=== PATIENT | male | born 1955 | race Caucasian/White ===

== ENCOUNTER 2022-04-25 00:54 | Day surgery (SDC) | payer BC, SELFPAY ==
[2022-04-18 15:44] VITALS: BMI 28.6
--- NOTE | 2022-04-24 12:34 | PM.HPGS ---
History of Present Illness History of Present Illness Consent: Risks, benefits, and alternatives have been discussed and questions answered. Patient agrees to proceed with procedure. Chief complaint: hx colon polyps, neoplasm screening Narrative: Francisco Javier Bunch is a 66 year old male here for colon cancer screening. Five years ago he had a large cecal polyp that required piecemeal removal. Six months later he had removal of residual polyp and several months after that he was examined there was no residual polyp tissue at that time. Review of Systems Review of Systems: All systems reviewed & are unremarkable except as noted in HPI and below PMFSH Past Medical History Medical History Asthma Atrial fibrillation history of; now in NSR Diverticular disease [place] syndrome Hypertension Surgical History Surgical History H/O hand surgery History of colon resection History of left knee replacement Family History Family History Mother Patient's mother is in good health Father Emphysema lung Sibling Heart disease Other Family history of emphysema Social History Social History Smoking status: Never smoker Alcohol intake: current Drinks per week: 2 Alcohol use details: occasionally Substance use: never Substance use type: does not use Living arrangements: with family Spiritual care concerns: No Meds Home Medications and Allergies Home Medications Medication Instructions Recorded Confirmed Type albuterol sulfate 90 mcg/actuation 2 puff inhalation Q6H PRN Dyspnea 04/18/22 04/18/22 History aerosol inhaler Aspirin Child 81 mg PO DAILY 04/25/22 04/25/22 History Allergies Allergy/AdvReac Type Severity Reaction Status Date / Time No Known Allergies Allergy Verified 04/25/22 06:49 Exam Const: General: alert Orientation/consciousness: patient oriented x3 Resp: Auscultation: clear to auscultation bilaterally Cardio: Rhythm: regular rhythm GI: GI Palp: Yes Soft to palpation and No Tenderness to palpation present (GI) Neuro: General: patient oriented x3 Assessment and Plan Assessment and plan (1) Colon cancer screening: Code(s): Z12.11 - Encounter for screening for malignant neoplasm of colon Status: Acute Assessment and Plan: Colonoscopy with possible biopsy or polypectomy or cautery or injection of substances.
[2022-04-25 06:52] VITALS: BP 161/90; PULSE 75; RESP 20; TEMP 36.6; O2SAT 97
[2022-04-25] MEDS: LACTATED RINGERS 1,000 ML 150 ML IV CONT (07:01)
--- NOTE | 2022-04-25 07:44 | WPDANESEPPF ---
Anes - Initial Pre Proc Eval Procedure: Operation Date: 04/25/22 08:00 Proposed Procedures p Screening Colonoscopy - Reginaldo Nugent MD Date/Time: 04/25/22 07:44 Surgeon: Reginaldo Nugent MD Pre Op Diagnosis: hx colon polyps, neoplasm screening Patient Data Age: 66 Gender: M Height: 1.8 m Weight: 92.8 kg Last Vital Signs Temp 97.8 F 04/25/22 06:52 Pulse 75 04/25/22 06:52 Resp 20 04/25/22 06:52 BP 161/90 H 04/25/22 06:52 Pulse Ox 97 04/25/22 06:52 O2 Del Method Room Air 04/25/22 06:52 Allergies Allergy/AdvReac Type Severity Reaction Status Date / Time No Known Allergies Allergy Verified 04/25/22 06:49 Home Medications Medication Instructions Recorded Confirmed Type albuterol sulfate 90 mcg/actuation 2 puff inhalation Q6H PRN Dyspnea 04/18/22 04/18/22 History aerosol inhaler Aspirin Child 81 mg PO DAILY 04/25/22 04/25/22 History Patient hx anesthesia problems: none Family hx anesthesia problems: none Results Review: All pre-operative results and documents have been reviewed as part of the pre-operative evaluation. [facility] Past Medical History Medical History Asthma Atrial fibrillation history of; now in NSR Diverticular disease [place] syndrome Hypertension Surgical History Surgical History H/O hand surgery History of colon resection History of left knee replacement Family History Family History Mother Patient's mother is in good health Father Emphysema lung Sibling Heart disease Other Family history of emphysema Social History Social History Smoking status: Never smoker Alcohol intake: current Drinks per week: 2 Alcohol use details: occasionally Substance use: never Substance use type: does not use Living arrangements: with family Spiritual care concerns: No Anes - Eval Final PreProcedure Day of Procedure 04/25/22 07:44 Patient weight: normal Heart: regular rate and rhythm Lungs: clear to auscultation Airway: Mallampati scale class II Neurological: alert and oriented Last oral intake: >/= 8 hours ASA classification: III Emergent: no Anesthetic plan: proceed Anesthesia type and monitoring: general GIVS and standard monitoring Results Review: All pre-operative results and documents have been reviewed as part of the pre-operative evaluation. Informed Consent: The patient's anesthetic plan and its attendant risks and benefits were discussed with the patient/family/POA. Questions were solicited and answers provided to the satisfaction of the patient/family/POA.
[2022-04-25 08:00] VITALS: BP 128/82; PULSE 65; RESP 18; O2SAT 98
[2022-04-25 08:10] VITALS: BP 133/87; PULSE 67; RESP 18; O2SAT 98
[2022-04-25 08:28] VITALS: BP 135/85; PULSE 71; RESP 18; O2SAT 98
--- NOTE | 2022-04-25 08:32 | SUR.PHASEII ---
pts ride was 30 mnutes away, unable to reach by phone. pt was able to text her and she will be here by 0845.
== END 2022-04-25 08:59 | disposition home or self-care (01) ==
PROVIDERS: PCP Internal Medicine; Visit Provider Internal Medicine Gastroenterology
PROC: 0DJD8ZZ Inspection of Lower Intestinal Tract, Via Natural or Artificial Opening Endoscopic (ICD-10-PCS; CPT 45378; principal; 2022-04-25 08:00)
DX: Z12.11 Encounter for screening for malignant neoplasm of colon (principal); K57.30 Diverticulosis of large intestine without perforation or abscess without bleeding; Z98.0 Intestinal bypass and anastomosis status; Z90.49 Acquired absence of other specified parts of digestive tract; Z86.010 Personal history of colon polyps; E80.4 Gilbert syndrome; I10 Essential (primary) hypertension; J45.909 Unspecified asthma, uncomplicated; Z79.51 Long term (current) use of inhaled steroids; Z79.82 Long term (current) use of aspirin
CPT/HCPCS: 45378; J2704; J7120